=== PATIENT | male | born 1980 | race Caucasian/White ===

== ENCOUNTER 2018-02-14 21:10 | Emergency (ER) | payer MEDICAID, OTHER ==
[~2018-02-14] VITALS: Ht 177.8 cm; Wt 100.4 kg
[2018-02-14 23:04] VITALS: BP 124/75
== END 2018-02-14 23:06 | disposition home or self-care (01) ==
LOC: ED 22:17
DX: K40.90 Unilateral inguinal hernia, without obstruction or gangrene, not specified as recurrent (principal); F17.210 Nicotine dependence, cigarettes, uncomplicated
CPT/HCPCS: 76857; 99284

== ENCOUNTER 2019-11-10 08:46 | Emergency (ER) | payer MEDICAID ==
[~2019-11-10] VITALS: Ht 177.8 cm; Wt 105.0 kg
--- NOTE | 2019-11-10 09:15 | NUR ---
THIS IS A 38 YO M W/ C/O LOW BACK PAIN 11/04 AND GROIN "UNCOMFORTABLE" X1 MONTH. PT REPORTS HX OF HERNIA SX IN 2009 AND THAT MESH THAT WAS USED IS NOW BEING RECALLED. PT REPORTS PAIN RELIEVED W/ REST. NO NEW CHANGES TODAY. PT RESTING ON [employer] W/ CALL LIGHT IN REACH, CONNECTED TO MONITORING, VSS, NADN. AWAITING ED EVAL.
--- NOTE | 2019-11-10 10:00 | NUR ---
IN ROOM FOR ED EVAL.
[2019-11-10] MEDS ORDERED: KETOROLAC 60 MG/2 ML ONE (10:12)
[2019-11-10] MEDS ORDERED: HYDROcodone/APAP 5/325 TABLET ONE (10:12)
--- NOTE | 2019-11-10 10:18 | NUR ---
PT MEDICATED PER EMAR. PT AMBULATORY TO TH BR W/ A STEADY GAIT. URINE CUP PROVIDED FOR SPECIMEN.
[2019-11-10 10:19] VITALS: BP 129/79
[2019-11-10] MEDS ORDERED: KETOROLAC 30 MG/1 ML IM ONE (10:30)
[2019-11-10] MEDS ORDERED: HYDROcodone/APAP 5/325 TABLET PO ONE (10:30)
--- NOTE | 2019-11-10 10:33 | NUR ---
PT TO CT.
[2019-11-10 10:37] LABS: MICROSCOPIC AUTO
--- NOTE | 2019-11-10 10:47 | NUR ---
PT RESTING ON [employer] W/ CALL LIGHT IN REACH. RESP EVEN AND UNLABORED, NADN. AWAITING RESULTS.
--- NOTE | 2019-11-10 10:55 | NUR ---
ALL TESTS RESULTED. PT IS UP FOR RECHECK AT THIS TIME.
--- NOTE | 2019-11-10 11:28 | NUR ---
Patient given discharge instructions and they have confirmed that they understand the instructions. Patient ambulatory with steady gait.
== END 2019-11-10 11:29 | disposition home or self-care (01) ==
LOC: ED 09:48
DX: S39.012A Strain of muscle, fascia and tendon of lower back, initial encounter (principal); X58.XXXA Exposure to other specified factors, initial encounter; Y93.89 Activity, other specified; Y92.89 Other specified places as the place of occurrence of the external cause; Y99.8 Other external cause status
CPT/HCPCS: 74176; 81001; 96372; 99284; J1885

== ENCOUNTER 2020-05-24 21:00 | Emergency (ER) | payer MEDICAID ==
[~2020-05-24] VITALS: Ht 177.8 cm; Wt 100.0 kg
[2020-05-24] MEDS ORDERED: OMNIPAQUE 350 MG/ML, 100ML BOTTLE ONE (21:30)
[2020-05-24] MEDS ORDERED: DEXAMETHASONE 4 MG TABLET PO ONE (21:30)
[2020-05-24 21:46] LABS: BASOPHILS % (AUTO) 0 % (0-1); EOSINOPHILS % (AUTO) 0 % (1-7); LYMPHOCYTES % (AUTO) 7 % (22-44); MEAN CORPUSCULAR HEMOGLOBIN 30.8 pg (27.5-34.5); MEAN CORPUSCULAR HGB CONC 34.5 g/dL (33.2-36.2); MEAN PLATELET VOLUME 8.6 fL (7.4-10.4); MONOCYTES % (AUTO) 5 % (2-9); NEUTROPHILS % (AUTO) 88 % (42-75); PLATELET COUNT 246 x10^3/uL (130-400); RED BLOOD COUNT 5.41 x10^6/uL (4.38-5.82); RED CELL DISTRIBUTION WIDTH 13.3 % (9.4-14.8)
[2020-05-24 21:54] LABS: ALBUMIN 3.2 g/dL (3.4-5.0); ANION GAP 5 mmol/L (5-15); CALCIUM 8.8 mg/dL (8.5-10.1); CHLORIDE 102 mmol/L (98-107); CREATININE 1.02 mg/dL (0.7-1.3)
[2020-05-24] MEDS ORDERED: AMOXICILLIN 500 MG CAPSULE PO ONE (22:00)
[2020-05-24] MEDS ORDERED: DEXAMETHASONE 4 MG TABLET ONE (22:09)
[2020-05-24] MEDS ORDERED: AMOXICILLIN 500 MG CAPSULE ONE (22:10)
[2020-05-24 22:16] LABS: MD SCAN
--- NOTE | 2020-05-24 22:30 | NUR ---
PT HAS C/O SORE THROAT. PT IS RESTING IN BED. PT ON MONITOR WITH PT VSS. PT MEDICATED PER MAR
--- NOTE | 2020-05-24 22:32 | NUR ---
PT AT CT
[2020-05-24 23:29] VITALS: BP 136/74
== END 2020-05-24 23:33 | disposition home or self-care (01) ==
LOC: ED 22:15
DX: J02.0 Streptococcal pharyngitis (principal); F17.210 Nicotine dependence, cigarettes, uncomplicated
CPT/HCPCS: 36415; 70491; 80048; 82040; 85025; 87880; 99285; 99406; Q9967

== ENCOUNTER 2020-11-05 00:12 | Emergency (ER) | payer MEDICAID ==
[~2020-11-05] VITALS: Ht 177.8 cm; Wt 100.0 kg
[2020-11-05 00:20] VITALS: BP 119/65
== END 2020-11-05 00:48 | disposition home or self-care (01) ==
LOC: ED 00:32
DX: L03.116 Cellulitis of left lower limb (principal); M79.671 Pain in right foot; M79.672 Pain in left foot
CPT/HCPCS: 99283